=== PATIENT | female | born 1950 | race Caucasian/White ===

== ENCOUNTER 2016-10-13 18:26 | Emergency (ER) | payer MEDICARE, BC ==
[~2016-10-13] VITALS: Ht 165.1 cm; Wt 61.0 kg
[2016-10-13 18:27] VITALS: BP 134/76; PULSE 83; RESP 17; TEMP 97.9; O2SAT 96
[2016-10-13] MEDS ORDERED: VIST50CA PO (18:40)
[2016-10-13] MEDS ORDERED: PRED20 PO (18:40)
[2016-10-13] MEDS ORDERED: PERM5CRE TOPICAL (18:40)
[2016-10-13] MEDS ORDERED: DEXAMETHASONE SOD PHOS 20 MG/5 ML VIAL IM ONE (18:45)
--- NOTE | 2016-10-13 18:46 | PD ---
HPI Chief Complaint: Skin Problem Time Seen by Provider: 18:41 Travel History International Travel<30 days: No Contact w/Intl Traveler<30days: No Traveled to known affect area: No History of Present Illness HPI 66-year-old female that presents to the ED for eval of hives to the groin and axilla. Per patient she's had this for about 10 days now. Per patient she recently moved from different town and the rash actually started before she moved. Per patient is not going away. She denies changing any of her detergents, soaps, clothes. She states that she seemed wash her clothes with no relief. She is taking Benadryl with some relief but she continues to have the H and the hives. She denies any medication changes. She is new from town and she has no PCP in the area. Per patient he comes to get evaluated. Per patient she's had this once before and she did require a shot of steroids. She does request us as well. She has no pain. Nobody else in the house has this. [facility] Social History Alcohol Use: No Tobacco Use: No Substance Use: No Allergies-Medications (Allergen,Severity, Reaction): Coded Allergies: Latex (Verified Allergy, Intermediate, ITCHING, 10/13/16) Review of Systems Except as stated in HPI: all other systems reviewed are Neg Physical Exam Narrative GENERAL: SKIN: Warm and dry. Patient has hives to the groin as well as axilla noted bilaterally. Seen with female nurse present. Some insectlike bites on theof the fingers but minimal. Some rash noted also in the back and the front but minimal. HEAD: Atraumatic. Normocephalic. EYES: Pupils equal and round. No scleral icterus. No injection or drainage. ENT: No nasal bleeding or discharge. Mucous membranes pink and moist. Tongue is midline. No uvula deviation. NECK: Trachea midline. No JVD. CARDIOVASCULAR: Regular rate and rhythm. RESPIRATORY: No accessory muscle use. Clear to auscultation. Breath sounds equal bilaterally. GASTROINTESTINAL: Abdomen soft, non-tender, nondistended. Hepatic and splenic margins not palpable. MUSCULOSKELETAL: Extremities without clubbing, cyanosis, or edema. No obvious deformities. NEUROLOGICAL: Awake and alert. No obvious cranial nerve deficits. Motor grossly within normal limits. Five out of 5 muscle strength in the arms and legs. Normal speech. PSYCHIATRIC: Appropriate mood and affect; insight and judgment normal. Data Data Last Documented VS Vital Signs Date Time Temp Pulse Resp B/P Pulse Ox O2 Delivery O2 Flow Rate FiO2 10/13/16 18:27 97.9 83 17 134/76 96 Orders Dexamethasone Inj (Decadron Inj) (10/13/16 18:45) MDM Medical Decision Making Medical Screen Exam Complete: Yes Emergency Medical Condition: Yes Medical Record Reviewed: Yes Differential Diagnosis Hives versus allergic reaction versus allergic dermatitis Narrative Course 66-year-old female that presents to the ED for evaluation of hives. Patient was properly examined and was found to have signs and symptoms consistent appears to be hives. Unclear etiology but does appear to be allergic. At this time I will treat patient with prednisone as well as Vistaril and imaging cream to cover for scabies although this appears to be less likely. Patient was given a shot here of dexamethasone to help with her symptoms. She already took Benadryl today. She was instructed to follow-up with allergies in [facility]. See ED worsening symptoms. Follow up with PCP. Diagnosis Primary Impression: Allergic dermatitis Patient Instructions: General Instructions Additional Instructions: Take medication as prescribed. Take Benadryl or Vistaril but not take them together. You can take them 6 hours apart however. Follow with die attaching machine tender in [place]. See ED worsening symptoms. Some allergy clinics in the area: [facility]: Dr Joey Chavez [facility]: Dr Tomas Templeton Med/Other Pt SpecificInfo: Prescription(s) given Scripts Permethrin Topical 5% 5% Cream1 Applic TOPICAL ONCE #1 TUBE Ref 0 Prov:Ken Hyde MD 10/13/16 Prednisone 20 Mg Tab20 Mg PO BID 7 Days Ref 0 Prov:Ken Hyde MD 10/13/16 Hydroxyzine Pamoate (Vistaril)50 Mg Cap50 Mg PO Q6HR PRN (ITCHING) #20 CAP Ref 0 Prov:Ken Hyde MD 10/13/16 Disposition: 01 DISCHARGE HOME Condition: Stable Kvng Edmond Oct 13, 2016 18:46
[2016-10-13] MEDS ORDERED: ZETI10TA5 PO (18:49)
[2016-10-13] MEDS ORDERED: EXEM25TA PO (18:49)
[2016-10-13] MEDS ORDERED: MONT10TA2 PO (18:49)
== END 2016-10-13 18:56 | disposition home or self-care (01) ==
LOC: PHEFT 18:26
DX: L23.9 Allergic contact dermatitis, unspecified cause (principal)
CPT/HCPCS: 96372; 99284; J1100

== ENCOUNTER 2017-05-27 13:18 | Emergency (ER) | payer MEDICARE, BC ==
[~2017-05-27] VITALS: Ht 165.1 cm; Wt 50.0 kg
[~2017-05-27 13:18] MED LIST: EXEM25TA PO; EZET10 PO; MONT10TA2 PO; PERM5CRE TOPICAL; PRED20 PO; VIST50CA PO
[2017-05-27 14:07] VITALS: BP 131/69; PULSE 64; RESP 18; TEMP 97.8; O2SAT 100
[2017-05-27] MEDS ORDERED: SODIUM CHLORIDE 0.9% FLUSH 10 ML FLUSH IVF PRN ×2 (14:15→14:45)
[2017-05-27] MEDS ORDERED: SODIUM CHLOR 0.9% 1000 ML INJ 1,000 ML IV ONE (14:37)
--- NOTE | 2017-05-27 14:37 | PD ---
HPI Chief Complaint: Injury Time Seen by Provider: 14:27 Travel History International Travel<30 days: No Contact w/Intl Traveler<30days: No Traveled to known affect area: No History of Present Illness HPI The patient is a 67-year-old female who presents to the emergency department via EMS for right shoulder pain. The patient states she was trying to throw bag over her left shoulder, with her right upper extremity, which she thinks she dislocated her shoulder. The patient states she felt discomfort of the right shoulder and then had a syncopal episode. The patient does note a history of syncope with multiple syncopal episodes in the past, with previous episodes from pain and from needle insertions. She denies any headache, neck pain, chest pain, shortness breath, nausea, vomiting, or abdominal pain. She does note Limited range of motion of the right shoulder secondary to pain. She denies any history of previous right shoulder dislocations. Symptoms are moderate. There are no current alleviating or exacerbating factors. PFSH Past Medical History Cancer: Yes (breast) High Cholesterol: Yes Chemotherapy: Yes Diminished Hearing: No Past Surgical History Appendectomy: Yes Cardiac Surgery: Yes (abalation) Cholecystectomy: Yes Joint Replacement: Yes (left hip) Other Surgery: Yes (right mastectomy) Social History Alcohol Use: No Tobacco Use: No Substance Use: No Allergies-Medications (Allergen,Severity, Reaction): Coded Allergies: latex (Unverified Allergy, Intermediate, ITCHING, 11/02/16) Reported Meds & Prescriptions Reported Meds & Active Scripts Active Permethrin Topical 5% (Permethrin) 5% Cream 1 Applic TOPICAL ONCE Prednisone 20 Mg Tab 20 Mg PO BID 7 Days Vistaril (Hydroxyzine Pamoate) 50 Mg Cap 50 Mg PO Q6HR PRN Reported Exemestane 25 Mg Tab 25 Mg PO DAILY Zetia (Ezetimibe) 10 Mg Tab 10 Mg PO HS Singulair (Montelukast Sodium) 10 Mg Tab 10 Mg PO DAILY Review of Systems Except as stated in HPI: all other systems reviewed are Neg HENT: No: Headaches, Lightheadedness Cardiovascular: Positive: Syncope, No: Chest Pain or Discomfort Respiratory: No: Shortness of Breath Gastrointestinal: No: Nausea, Vomiting, Abdominal Pain Musculoskeletal: Positive: Limited ROM, Pain Neurologic: Positive: Syncope, No: Change in Mentation, Paresthesia, Sensory Disturbance Physical Exam Narrative GENERAL: Awake, alert, pleasant 67-year-old female who appears her stated age and is in no acute respiratory distress. SKIN: Focused skin assessment warm/dry. HEAD: Atraumatic. Normocephalic. EYES: Pupils equal and round. 3 mm bilateral and reactive. ENT: No nasal bleeding or discharge. Mucous membranes pink and moist. NECK: Trachea midline. No JVD. No tenderness of the cervical vertebrae. CARDIOVASCULAR: Regular rate and rhythm. No murmur appreciated. RESPIRATORY: No accessory muscle use. Clear to auscultation. Breath sounds equal bilaterally. GASTROINTESTINAL: Abdomen soft, non-tender, nondistended. No rebound tenderness. MUSCULOSKELETAL: The right upper extremity is abducted and externally rotated, resting on top of the pillow. Positive right radial pulse. Intrinsic right hand muscles are intact. The patient is able flex and extend the right hand and right wrist. She is able flex and extend the right elbow. Limited range of motion with internal rotation and adduction of the right shoulder. NEUROLOGICAL: Awake and alert. No obvious cranial nerve deficits. Motor grossly within normal limits. Normal speech. Sensation is intact over the radial, median, and ulnar distribution of the right hand. PSYCHIATRIC: Appropriate mood and affect; insight and judgment normal. Data Data Last Documented VS Vital Signs Date Time Temp Pulse Resp B/P (MAP) Pulse Ox O2 Delivery O2 Flow Rate FiO2 05/27/17 16:02 100 Nasal Cannula 3.00 05/27/17 14:07 97.8 64 18 131/69 (89) Orders Orders Iv Access Insert/Monitor (05/27/17 14:13) Sodium Chloride 0.9% Flush (Ns Flush) (05/27/17 14:15) Electrocardiogram (05/27/17 14:37) Complete Blood Count With Diff (05/27/17 14:37) Comprehensive Metabolic Panel (05/27/17 14:37) Magnesium (Mg) (05/27/17 14:37) Ecg Monitoring (05/27/17 14:37) Oximetry (05/27/17 14:37) Sodium Chloride 0.9% Flush (Ns Flush) (05/27/17 14:45) Sodium Chlor 0.9% 1000 Ml Inj (Ns 1000 M (05/27/17 14:37) Orthostatic Vital Signs (05/27/17 14:37) Shoulder, One View (3/9/18 ) Propofol 200 Mg/20 Ml Inj (Diprivan 200 (05/27/17 15:30) Shoulder, Limited(2vws) (05/27/17 ) Labs Laboratory Tests Test 05/27/17 15:30 White Blood Count 8.6 TH/MM3 Red Blood Count 4.29 MIL/MM3 Hemoglobin 13.8 GM/DL Hematocrit 39.9 % Mean Corpuscular Volume 92.9 FL Mean Corpuscular Hemoglobin 32.0 PG Mean Corpuscular Hemoglobin Concent 34.5 % Red Cell Distribution Width 13.4 % Platelet Count 203 TH/MM3 Mean Platelet Volume 7.3 FL Neutrophils (%) (Auto) 79.7 % Lymphocytes (%) (Auto) 10.8 % Monocytes (%) (Auto) 8.6 % Eosinophils (%) (Auto) 0.4 % Basophils (%) (Auto) 0.5 % Neutrophils # (Auto) 6.9 TH/MM3 Lymphocytes # (Auto) 0.9 TH/MM3 Monocytes # (Auto) 0.7 TH/MM3 Eosinophils # (Auto) 0.0 TH/MM3 Basophils # (Auto) 0.0 TH/MM3 CBC Comment DIFF FINAL Differential Comment Blood Urea Nitrogen 8 MG/DL Creatinine 0.54 MG/DL Random Glucose 80 MG/DL Total Protein 5.2 GM/DL Albumin 2.6 GM/DL Calcium Level 6.9 MG/DL Magnesium Level 1.6 MG/DL Alkaline Phosphatase 77 U/L Aspartate Amino Transf (AST/SGOT) 24 U/L Alanine Aminotransferase (ALT/SGPT) 19 U/L Total Bilirubin 0.6 MG/DL Sodium Level 144 MEQ/L Potassium Level 3.3 MEQ/L Chloride Level 113 MEQ/L Carbon Dioxide Level 22.3 MEQ/L Anion Gap 9 MEQ/L Estimat Glomerular Filtration Rate 112 ML/MIN Protein Corrected Calcium 7.9 MG/DL [facility] Medical Decision Making Medical Screen Exam Complete: Yes Emergency Medical Condition: Yes Medical Record Reviewed: Yes Interpretation(s) EKG reveals normal sinus rhythm with sinus arrhythmia. Low QRS voltage in the extremity leads. Q wave noted in lead 3. Laboratory Tests Test 05/27/17 15:30 White Blood Count 8.6 TH/MM3 Red Blood Count 4.29 MIL/MM3 Hemoglobin 13.8 GM/DL Hematocrit 39.9 % Mean Corpuscular Volume 92.9 FL Mean Corpuscular Hemoglobin 32.0 PG Mean Corpuscular Hemoglobin Concent 34.5 % Red Cell Distribution Width 13.4 % Platelet Count 203 TH/MM3 Mean Platelet Volume 7.3 FL Neutrophils (%) (Auto) 79.7 % Lymphocytes (%) (Auto) 10.8 % Monocytes (%) (Auto) 8.6 % Eosinophils (%) (Auto) 0.4 % Basophils (%) (Auto) 0.5 % Neutrophils # (Auto) 6.9 TH/MM3 Lymphocytes # (Auto) 0.9 TH/MM3 Monocytes # (Auto) 0.7 TH/MM3 Eosinophils # (Auto) 0.0 TH/MM3 Basophils # (Auto) 0.0 TH/MM3 CBC Comment DIFF FINAL Differential Comment Blood Urea Nitrogen 8 MG/DL Creatinine 0.54 MG/DL Random Glucose 80 MG/DL Total Protein 5.2 GM/DL Albumin 2.6 GM/DL Calcium Level 6.9 MG/DL Magnesium Level 1.6 MG/DL Alkaline Phosphatase 77 U/L Aspartate Amino Transf (AST/SGOT) 24 U/L Alanine Aminotransferase (ALT/SGPT) 19 U/L Total Bilirubin 0.6 MG/DL Sodium Level 144 MEQ/L Potassium Level 3.3 MEQ/L Chloride Level 113 MEQ/L Carbon Dioxide Level 22.3 MEQ/L Anion Gap 9 MEQ/L Estimat Glomerular Filtration Rate 112 ML/MIN Protein Corrected Calcium 7.9 MG/DL Last Impressions Shoulder X-Ray 05/27/17 0000 Signed Impressions: Service Date/Time: Saturday, May 27, 2017 14:41 - CONCLUSION: Dislocation as above Rubens Ferris MD FACR Differential Diagnosis Differential diagnosis includes dislocation, fracture, contusion, hematoma, sprain, strain, arrhythmia, syncope, vasogenic syncope, neurogenic syncope, electrolyte abnormality. Narrative Course IV was established, labs are drawn and sent, and the patient was placed on cardiac telemetry monitoring and continuous pulse oximetry monitoring. EKG was ordered and interpreted. Orthostatic vital signs were obtained. X-ray the right shoulder was obtained. The patient was administered IV fluids. Reduction x-rays unremarkable. EKG reveals sinus rhythm with sinus arrhythmia. Labs are unremarkable except for mild hypocalcemia. The patient was reevaluated at 5 PM, symptoms as significant improved. Patient is requesting discharge home. I will place the patient in a sling, she will follow-up with [facility] on an outpatient basis. Procedures Procedure Narrative After the risks and benefits were discussed the following procedure was performed: MODERATE SEDATION: The patient was placed on a alarm security or surveillance monitor and pulse oximetry. An ambu bag and suction was immediately available at bedside. The patient was monitored by the nurse. Oxygen saturation, heart rate and blood pressure were monitored. Procedural sedation was acheived using 100 mg propofol. The patient was observed until awake and alert. Procedural Sedation time in attendance was 30 minutes. The patient's right shoulder was reduced under conscious sedation with extension and external rotation with abduction. The shoulder was reduced, was placed in a sling. The patient is neurovascularly intact afterwards. The patient tolerated the procedure without difficulty and there was no obvious complications. Diagnosis Primary Impression: Dislocation of left shoulder joint Qualified Codes: S43.005A - Unspecified dislocation of left shoulder joint, initial encounter Patient Instructions: General Instructions Additional Instructions: Medications as directed. Please provide the patient copy of her labs at discharge. Return if symptoms worsen or progress. Med/Other Pt SpecificInfo: Prescription(s) given Scripts Ibuprofen (Ibuprofen) 400 Mg Tab 400 MG PO Q6H Y for PAIN SCALE 1 TO 10, #20 TAB 0 Refills Prov: Avel Meyers MD 05/27/17 Disposition: 01 DISCHARGE HOME Condition: Stable Avel Meyers MD May 27, 2017 14:37
--- NOTE | 2017-05-27 15:08 | RADRPT ---
EXAM DATE/TIME: 05/27/2017 14:41 [facility] COMPARISON: No previous studies available for comparison. INDICATIONS : Left shoulder pain after patient was picking up bags for yard work MEDICAL HISTORY : None. SURGICAL HISTORY : None. ENCOUNTER: Initial ACUITY: 1 day PAIN SCORE: 10/10 LOCATION: Left shoulder FINDINGS: Anterior dislocation of the shoulder, with the humeral head trapped below the glenoid. CONCLUSION: Dislocation as above Rubens Ferris MD FACR on May 27, 2017 at 15:05 Board Certified Radiologist. This report was verified electronically.
[2017-05-27] MEDS ORDERED: PROPOFOL 200 MG/20 ML AMP IV ONE (15:30)
[2017-05-27 15:49] LABS: AUTOMATED NEUTROPHIL # 6.9 TH/MM3 (1.8-7.7); BASOPHIL % 0.5 % (0.0-2.0); EOSINOPHIL % 0.4 % (0.0-4.0); HEMATOCRIT 39.9 % (35.0-46.0); HEMOGLOBIN 13.8 GM/DL (11.6-15.3); LYMPH % 10.8 % (9.0-44.0); LYMPHOCYTE # 0.9 TH/MM3 (1.0-4.8); MEAN CELL VOLUME 92.9 FL (80.0-100.0); MEAN CORPUSCULAR HGB CONC 34.5 % (32.0-36.0); MEAN PLATELET VOLUME 7.3 FL (7.0-11.0); MONO % 8.6 % (0.0-8.0); MONOCYTE # 0.7 TH/MM3 (0-0.9); NEUT % 79.7 % (16.0-70.0); PLATELET COUNT 203 TH/MM3 (150-450); RED BLOOD COUNT 4.29 MIL/MM3 (4.00-5.30); RED CELL DISTRIBUTION WIDTH 13.4 % (11.6-17.2); WHITE BLOOD COUNT 8.6 TH/MM3 (4.0-11.0)
[2017-05-27 16:02] VITALS: O2SAT 100
[2017-05-27 16:22] LABS: ALBUMIN 2.6 GM/DL (3.4-5.0); BICARBONATE 22.3 MEQ/L (21.0-32.0); CALCIUM 6.9 MG/DL (8.5-10.1); CREATININE 0.54 MG/DL (0.50-1.00); MAGNESIUM 1.6 MG/DL (1.5-2.5)
[2017-05-27 16:24] LABS: CALCIUM-PROTEIN CORRECTED 7.9 MG/DL (8.5-10.1); TOTAL BILIRUBIN ADULT 0.6 MG/DL (0.2-1.0); TOTAL PROTEIN 5.2 GM/DL (6.4-8.2)
[2017-05-27 16:55] VITALS: BP_SYST 113; BP_SYST 114; BP_DIAS 61; BP_DIAS 63; RESP 16; RESP 18
--- NOTE | 2017-05-27 17:01 | RADRPT ---
EXAM DATE/TIME: 05/27/2017 16:11 [facility] COMPARISON: No previous studies available for comparison. INDICATIONS : Post reduction right shoulder. MEDICAL HISTORY : None. SURGICAL HISTORY : None. ENCOUNTER: Initial ACUITY: 1 day PAIN SCORE: 0/10 LOCATION: Right shoulder. FINDINGS: There is anatomic alignment. Degenerative changes at the AC joint. Lung apex is clear. Fracture no t appreciated. CONCLUSION: Anatomic alignment Rubens Ferris MD FACR on May 27, 2017 at 16:59 Board Certified Radiologist. This report was verified electronically.
[2017-05-27] MEDS ORDERED: IBUP1TAB5 PO (17:07)
--- NOTE | 2017-05-29 00:18 | EKG ---
Date Performed: 05/27/2017 Time Performed: 16:47:25 PTAGE: 67 years EKG: Sinus rhythm WITH SINUS ARRHYTHMIA LOW QRS VOLTAGE IN EXTREMITY LEADS POSSIBLE RIGHT VENTRICULAR CONDUCTION DELAY BORDERLINE ECG NO PREVIOUS TRACING Since the prior tracing, there has been no significant change DOCTOR: Juan Hyde Interpretating Date/Time 05/29/2017 00:17:01
--- NOTE | 2017-05-29 00:24 | EKG ---
Date Performed: 05/27/2017 Time Performed: 14:58:13 PTAGE: 67 years EKG: Sinus rhythm WITH SINUS ARRHYTHMIA POSSIBLE RIGHT VENTRICULAR CONDUCTION DELAY BASELINE ARTIFACT AFFECTS READING BORDERLINE ECG NO PREVIOUS TRACING DOCTOR: Juan Hyde Interpretating Date/Time 05/29/2017 00:23:45
== END 2017-05-27 17:19 | disposition home or self-care (01) ==
LOC: NEPD 13:18
DX: S43.005A Unspecified dislocation of left shoulder joint, initial encounter (principal); R94.31 Abnormal electrocardiogram [ECG] [EKG]; R55 Syncope and collapse; X50.1XXA Overexertion from prolonged static or awkward postures, initial encounter; Y93.89 Activity, other specified
CPT/HCPCS: 23650; 73020; 73030; 80053; 83735; 85025; 93005; 96360; 99285; J7030